=== PATIENT | male | born 2000 | race Caucasian/White ===

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

== ENCOUNTER 2018-07-20 21:13 | Emergency (ER) | payer OTHER ==
[2018-07-20] MEDS: AUGMENTIN 875 MG TAB PO (22:32)
[2018-07-20] MEDS: NORCO 5/325MG TABLET (BULK FOR ED) PO (22:32)
== END 2018-07-20 22:35 | disposition home or self-care (01) ==
LOC: M ED 21:13
DX: L60.0 Ingrowing nail (principal); Z72.0 Tobacco use
CPT/HCPCS: 99282

== ENCOUNTER → 2018-08-12 | Outpatient (REF) | payer OTHER ==
[2018-08-12 22:10] LABS: APPEARANCE, URINE CLEAR (CLEAR); BACTERIA, URINE AUTO NEGATIVE (NEGATIVE); BILIRUBIN, URINE AUTO NEGATIVE (NEGATIVE); BLOOD, URINE BLOOD NEGATIVE (NEGATIVE); COLOR, URINE YELLOW (YELLOW); GLUCOSE, URINE (UA) AUTO NEGATIVE (NEGATIVE); KETONE, URINE AUTO NEGATIVE (NEGATIVE); LEUKOCYTE ESTERASE, URINE AUTO NEGATIVE (NEGATIVE); MUCUS, URINE SMALL (NEGATIVE); NITRITE, URINE AUTO NEGATIVE (NEGATIVE); PROTEIN, URINE AUTO NEGATIVE (NEGATIVE); RBC, URINE AUTO 0 /HPF (0-3); SPECIFIC GRAVITY URINE AUTO 1.024 (1.002-1.035); SQUAMOUS EPITHELIAL CELL UR AU 0 /HPF (0-6); UROBILINOGEN, URINE AUTO 0.2 mg/dL (0.0-2.0); WBC, URINE AUTO 1 /HPF (0-3)
== END ==
LOC: M LAB REF 09:21
DX: N39.0 Urinary tract infection, site not specified (principal)
CPT/HCPCS: 81001

== ENCOUNTER 2019-01-23 20:16 | Emergency (ER) | payer OTHER ==
[~2019-01-23] VITALS: Ht 177.8 cm; Wt 113.6 kg
[~2019-01-23 20:16] MED LIST: AUGM875T28 PO; HYDR-3715 PO; NAPR-885 PO; TYLE325T5 PO
[2019-01-23] MEDS ORDERED: IBUPROFEN 600 MG TAB PO ONE (21:15)
--- NOTE | 2019-01-23 22:07 | REPVR ---
EXAM: CT Lumbar Spine Without Contrast EXAM DATE/TIME: 01/23/2019 9:10 PM CLINICAL HISTORY: 18 years old, male; Injury or trauma; Fall; Initial encounter; Blunt trauma (contusions or hematomas); Additional info: Falls TECHNIQUE: Imaging protocol: Axial computed tomography images of the lumbar spine without intravenous contrast. Coronal and sagittal reformatted images were created and reviewed. Radiation optimization: All CT scans at this facility use at least one of these dose optimization techniques: automated exposure control; mA and/or kV adjustment per patient size (includes targeted exams where dose is matched to clinical indication); or iterative reconstruction. COMPARISON: No relevant prior studies available. FINDINGS: Vertebrae: No fracture or compression. Discs/Spinal canal/Neural foramina: No spinal stenosis. No neural foraminal narrowing. Soft tissues: Unremarkable. IMPRESSION: Negative CT lumbar spine. No fracture or subluxation is evident and no spinal or foraminal stenosis. Electronically signed by: Ross Boyle On 01/23/2019 22:06:55 PM
[2019-01-23] MEDS ORDERED: CYCL10TA PO (22:36)
[2019-01-23] MEDS ORDERED: IBUP-1022 PO (22:36)
[2019-01-23 22:56] VITALS: BP 127/74
== END 2019-01-23 22:58 | disposition home or self-care (01) ==
LOC: M ED 20:16
DX: M54.16 Radiculopathy, lumbar region (principal); F17.200 Nicotine dependence, unspecified, uncomplicated

== ENCOUNTER 2019-02-05 05:49 | Emergency (ER) | payer OTHER ==
[~2019-02-05] VITALS: Ht 177.8 cm; Wt 113.6 kg
[~2019-02-05 05:49] MED LIST changes: +CYCL10TA PO; +IBUP-1022 PO
[2019-02-05] MEDS ORDERED: NS 1,000 ML IV ONE (06:30)
[2019-02-05] MEDS ORDERED: ONDANSETRON 4MG/2ML VIAL (J2405) IV ONE (06:30)
[2019-02-05 06:48] LABS: BASO % 0.2 % (0.0-1.0); EOS # 0.1 10^3/uL (0.0-0.50); EOS % 1.3 % (0.0-3.0); HEMATOCRIT 44.1 % (42.0-52.0); HEMOGLOBIN 15.2 g/dl (13.5-17.5); LYMPH # 1.1 10^3/uL (1.5-6.5); LYMPH % 10.9 % (24.0-44.0); MEAN CORPUSCULAR HEMOGLOBIN 29.6 pg (27.0-33.0); MEAN CORPUSCULAR HGB CONC 34.5 g/dl (32.0-36.5); MONO # 0.7 10^3/uL (0.0-0.8); MONO % 7.2 % (0.0-5.0); NEUTROPHILS # 7.8 10^3/uL (1.8-7.7); NEUTROPHILS % 80.3 % (36.0-66.0); PLATELET COUNT, AUTOMATED 168 10^3/uL (150-450); RED BLOOD COUNT 5.13 10^6/uL (4.30-6.10); WHITE BLOOD COUNT 9.7 10^3/uL (4.0-10.0)
[2019-02-05 07:16] LABS: INFLUENZA A AMPLIFICATION NEGATIVE (NEGATIVE); INFLUENZA B AMPLIFICATION NEGATIVE (NEGATIVE)
[2019-02-05 07:21] LABS: BLOOD UREA NITROGEN 15 MG/DL (7-18); CARBON DIOXIDE LEVEL 26 MEQ/L (21-32); CHLORIDE LEVEL 107 MEQ/L (98-107); CREATININE FOR GFR 1.07 MG/DL (0.70-1.30); GLUCOSE, FASTING 96 MG/DL (70-100); POTASSIUM SERUM 4.5 MEQ/L (3.5-5.1); SODIUM LEVEL 141 MEQ/L (136-145)
[2019-02-05] MEDS ORDERED: ONDA8TAB8 PO (08:20)
[2019-02-05] MEDS ORDERED: NEOSPORIN OINT 0.9 GM PKT (FLOOR STOCK) TOP ONE (08:30)
[2019-02-05 08:33] VITALS: BP 170/90
== END 2019-02-05 08:35 | disposition home or self-care (01) ==
LOC: M ED 05:49
DX: K52.9 Noninfective gastroenteritis and colitis, unspecified (principal)
CPT/HCPCS: 36415; 80048; 85025; 87502; 87880; 96361; 96374; 99284; J2405

== ENCOUNTER 2019-06-07 14:19 | Emergency (ER) | payer OTHER, SELFPAY ==
[~2019-06-07] VITALS: Ht 177.8 cm; Wt 105.2 kg
[~2019-06-07 14:19] MED LIST changes: +ONDA8TAB8 PO
[2019-06-07] MEDS ORDERED: ACET160S3 PO (14:23)
[2019-06-07 15:48] LABS: INFLUENZA A AMPLIFICATION NEGATIVE (NEGATIVE); INFLUENZA B AMPLIFICATION NEGATIVE (NEGATIVE)
[2019-06-07] MEDS ORDERED: ONDANSETRON 4 MG ORAL DISINTEGRATING TAB (Q0162 PER 1MG) PO ONE (16:00)
[2019-06-07] MEDS ORDERED: IBUPROFEN 600 MG TAB PO ONE (16:00)
[2019-06-07] MEDS ORDERED: ONDA4TAB6 PO (16:37)
[2019-06-07] MEDS ORDERED: KEFL500C17 PO (16:37)
[2019-06-07 16:53] VITALS: BP 165/90
== END 2019-06-07 16:56 | disposition home or self-care (01) ==
LOC: M ED 14:19
DX: J03.90 Acute tonsillitis, unspecified (principal); J45.909 Unspecified asthma, uncomplicated; F33.9 Major depressive disorder, recurrent, unspecified; F41.9 Anxiety disorder, unspecified; F20.9 Schizophrenia, unspecified
CPT/HCPCS: 87502; 99283; Q0162

== ENCOUNTER → 2023-08-20 | Outpatient (REF) | payer MEDICAID, SELFPAY ==
[~2023-08-20] MED LIST changes: +ACET160S3 PO; +CYCL-707 PO; -CYCL10TA PO; +KEFL500C17 PO; +ONDA4TAB6 PO
== END ==
LOC: M LAB REF 16:13
PROVIDERS: ATTEND Physician Assistant
DX: B34.9 Viral infection, unspecified (principal)

== ENCOUNTER 2025-04-27 11:50 | Emergency (ER) | payer OTHER, SELFPAY ==
[~2025-04-27] VITALS: Ht 180.3 cm; Wt 119.4 kg
[~2025-04-27 11:50] MED LIST changes: +ONDA-282 PO; +ONDA-284 PO; -ONDA4TAB6 PO; -ONDA8TAB8 PO
[2025-04-27] MEDS: LIDOCAINE 2% W/EPINEPHrine 20 ML VIAL **PRES FREE INJ ONE (13:00)
[2025-04-27] MEDS: TETANUS/DIPHTH/ACEL. PERTUSSIS 0.5 ML SYR IM.IMMUN ONE (13:02)
[2025-04-27 13:36] VITALS: BP 133/93; TEMP 98.2; O2SAT 98
== END 2025-04-27 13:39 | disposition home or self-care (01) ==
LOC: M ED 12:42
DX: S61.512A Laceration without foreign body of left wrist, initial encounter (principal); Y92.9 Unspecified place or not applicable; Y93.9 Activity, unspecified; Y99.9 Unspecified external cause status; W26.8XXA Contact with other sharp object(s), not elsewhere classified, initial encounter; Z23 Encounter for immunization

== ENCOUNTER 2025-06-13 17:58 | Emergency (ER) | payer SELFPAY ==
[~2025-06-13] VITALS: Ht 180.3 cm; Wt 113.6 kg
[~2025-06-13 17:58] MED LIST changes: -IBUP-1022 PO; +IBUP600T42 PO
[2025-06-13 20:17] VITALS: BP 153/96; TEMP 97; O2SAT 99
[2025-06-13] MEDS: KETOROLAC 60 MG/2 ML VIAL IM ONE (21:23)
== END 2025-06-13 21:32 | disposition home or self-care (01) ==
LOC: M ED 17:58
DX: S93.412A Sprain of calcaneofibular ligament of left ankle, initial encounter (principal); S93.492A Sprain of other ligament of left ankle, initial encounter; Y92.9 Unspecified place or not applicable; Y93.9 Activity, unspecified; Y99.9 Unspecified external cause status; W01.0XXA Fall on same level from slipping, tripping and stumbling without subsequent striking against object, initial encounter; F41.9 Anxiety disorder, unspecified; F32.A Depression, unspecified; F12.10 Cannabis abuse, uncomplicated
CPT/HCPCS: 73610; 96372; 99284; J1885